=== PATIENT | male | born 1945 | race Two or more races ===

== ENCOUNTER 2021-11-08 00:18 | Emergency (ER) | payer OTHER ==
[~2021-11-08] VITALS: Ht 177.8 cm; Wt 77.6 kg
[2021-11-08 00:29] VITALS: BP 146/71
[2021-11-08] MEDS ORDERED: LIDOCAINE 2% JEL UROJET 10 ML MM ONE (01:14)
== END 2021-11-08 03:26 | disposition home or self-care (01) ==
LOC: ER 00:18
DX: R31.9 Hematuria, unspecified (principal); Z98.890 Other specified postprocedural states; Z88.0 Allergy status to penicillin
CPT/HCPCS: 99282; A4217 ×2; J3490